=== PATIENT | female | born 1985 | race African-American/Black ===

== ENCOUNTER 2016-07-13 08:50 | Emergency (ER) | payer OTHER ==
[~2016-07-13 08:50] MED LIST: BENADRYL12.5 M1 PO; KEFLEX125 MG/5 M PO; MACROBID100 MG PO; NAPROSYN500 MG PO
[2016-07-13 09:28] LABS: INFLUENZA A NEG (NEG); INFLUENZA B NEG (NEG)
== END 2016-07-13 10:06 | disposition home or self-care (01) ==
LOC: CED 08:50 → CFTX 08:50
PROVIDERS: Nurse Practitioner
DX: H66.92 Otitis media, unspecified, left ear (principal); Z98.51 Tubal ligation status
CPT/HCPCS: 87651; 87804; 99283